=== PATIENT | male | born 1980 | race Caucasian/White ===

== ENCOUNTER 2024-03-12 18:08 | Inpatient (IN) | payer SELFPAY ==
--- NOTE | 2024-03-12 18:13 | PC.NURSE ---
arrived by stretcher from [place]
--- NOTE | 2024-03-12 19:18 | EXP.HP ---
History of Present Illness *Admission Date: 03/12/24 *Reason for visit:: Palpitation *History of present illness: This is a 43-year-old male with none other past medical history than hypertension, and obesity, presenting here as a transfer from [facility] for evaluation of palpitations and elevated troponin. Patient referred he was started on by was earlier today and he has been experiencing palpitations since then. He presented to the ER and he was fine on arrival to be hypertensive tachycardic EKG was obtained with normal sinus rhythm no ST elevation some T wave abnormality. Patient denies chest pain and shortness of breath. Troponin high-sensitivity was hide requesting transfer for cardiology evaluation. Admitted for further management and workup. [facility] Disclaimer: The information contained in this section may have been updated after the patient was seen, as this information can be updated by other users. Medical History (Updated 03/12/24 @ 23:52 by Pastor Simental APRN) Hypertension Family History Other Dementia Family history of acute heart failure Lung cancer Social History Smoking Status: Former smoker alcohol intake: former current occupational status: employed Travel in the last 8 weeks: None Review of Systems Review of Systems Review of systems:: pertinent systems reviewed and negative unless documented below Meds Home Medications and Allergies Home Medications ?Medication ?Instructions ?Recorded ?Confirmed ?Type bupropion HCl 300 mg 24 hr tablet, 300 mg PO DAILY 03/12/24 03/12/24 History extended release irbesartan 300 mg tablet 300 mg PO DAILY 03/12/24 03/12/24 History propranolol 40 mg tablet 40 mg PO DAILY 03/12/24 03/12/24 History New Prescriptions to Start Prescriptions: Allergies Allergy/AdvReac Type Severity Reaction Status Date / Time No Known Allergies Allergy Verified 03/12/24 19:06 Exam Data for Last 24 hours Vital signs and Labs for Last 24 Hours: O2 Del Method Room Air 03/12/24 19:07 Constitutional Constitutional: no acute distress *Routine HEENT Exam Head: Present normocephalic Eye: Present EOMI and PERRL ENT: Present mucous membranes moist *Routine Neck Exam Neck: Present supple; Absent lymphadenopathy *Routine Respiratory Exam Respiratory: Present CTA bilaterally *Routine Cardiovascular Exam Cardiovascular: Present RRR *Routine Abdominal Exam Abdominal: Present soft and normoactive bowel sounds; Absent tenderness *Routine Rectal Exam Rectal:: deferred *Routine Genitalia Exam Genitalia:: deferred *Routine Extremities Exam Extremities: Absent cyanosis, clubbing or edema *Routine Skin Exam Skin: Present warm; Absent rash *Routine Neurological Exam Neurological: Present alert and oriented X3 H&P: Result Imaging and Cardiology EKG: Status: image reviewed by me, Preliminary report and final report Chest x-ray: Status: image reviewed by me, Preliminary report and final report Assessment and Plan *Assessment and plan (1) NSTEMI (non-ST elevated myocardial infarction): Status: Acute Category: Medical Code(s): I21.4 - Non-ST elevation (NSTEMI) myocardial infarction (2) Hypertension: Status: Acute Qualifiers: Hypertension type: unspecified Qualified Code(s): I10 - Essential (primary) hypertension Category: Medical Code(s): I10 - Essential (primary) hypertension (3) Anxiety: Status: Acute Category: Medical Code(s): F41.9 - Anxiety disorder, unspecified (4) Obesity (BMI 30.0-34.9): Status: Acute Category: Medical Code(s): E66.9 - Obesity, unspecified Plan 43-year-old male with none other past medical history than hypertension, and obesity, presenting here as a transfer from [facility] for mindy
[2024-03-12 19:37] VITALS: BMI 33.0
[2024-03-12 20:00] VITALS: PULSE 80; O2SAT 94
[2024-03-12 20:33] LABS: Troponin I 0.07 ng/ml (0.00-0.034)
[2024-03-12 22:35] LABS: Troponin I 0.06 ng/ml (0.00-0.034)
--- NOTE | 2024-03-12 23:44 | ECG_ITS ---
APPROVED REPORT Exam: Resting ECG HR:84 bpm ECG Measurements Heart Rate 84 AXES SD 187 P 53 QRSd 83 QRS 22 QT 348 T 0 QTc 389 Conclusion SINUS RHYTHM NONSPECIFIC ST & T-WAVE ABNORMALITY BORDERLINE ECG UNCONFIRMED REPORT Electronically signed by : Thai Hudson MD 03/13/2024 08:53:02
[2024-03-13] VITALS (21 sets, daily range): BP systolic 127–161; BP diastolic 80–98; PULSE 70–91; RESP 16–19; TEMP 36.5–36.9; O2SAT 94–98; BMI 33.0
[2024-03-13 01:14] LABS: Troponin I 0.05 ng/ml (0.00-0.034)
--- NOTE | 2024-03-13 04:11 | PC.NURSE ---
Pt is alert and oriented x4 and currently tolerating RA well. Pt telemetry remains unchanged with a NSR. Pt denies chest pain and troponin levels have been trending down since admission (0.07, 0.06, 0.05). Pt has been NPO since 03/13 in preparation for cardiac consult and possible intervention. Pt voices no needs and there has been no acute changes thus far.
[2024-03-13 06:42] LABS: Basophils # 0.1 K/mm3 (0-0.2); Basophils % 0.7 % (0.1-2.0); Eosinophils # 0.2 K/mm3 (0.0-0.4); Eosinophils % 2.2 % (0.1-12.0); Hemoglobin 15.3 g/dL (14.1-18.0); Lymphocytes # 1.9 K/mm3 (0.7-4.5); Lymphocytes % 26.1 % (10-50); Mean Corpuscular HGB Conc 31.8 g/dL (31.8-35.4); Mean Corpuscular Hemoglobin 30.1 pg (27.0-31.2); Mean Corpuscular Volume 94.7 fl (80-94); Mean Platelet Volume 8.5 fl (7.4-10.4); Monocytes # 0.6 K/mm3 (0.1-1.0); Monocytes % 8.4 % (1.7-9.3); Neutrophils # 4.6 K/mm3 (1.8-7.8); Neutrophils % 62.6 % (37.0-80.0); Platelet Count 249 K/mm3 (142-424); Red Blood Count 5.07 M/mm3 (4.60-6.20); Red Cell Distribution Width 14.3 % (11.5-17.5); White Blood Count 7.4 K/mm3 (4.8-10.8)
[2024-03-13 06:45] LABS: Albumin Level 3.7 g/dl (3.5-5.0); Chloride 110 mmol/L (98-107); Potassium 4.2 mmoL/L (3.5-5.1); Sodium 136 mmol/L (136-145)
[2024-03-13 06:47] LABS: Alanine Aminotransferase 36 U/L (12-78); Alkaline Phosphatase 64 U/L (38-126); Anion Gap 7.2 mEq/L (5-15); Aspartate Amino Transferase 36 U/L (17-59); Bilirubin,Total 0.6 mg/dl (0.2-1.3); Blood Urea Nitrogen 11 mg/dl (9-20); Carbon Dioxide 23 mmol/L (22.0-30.0); Creatinine Clearance Estimated 144 mL/min (50-200); Estimated Glomerular Filt Rate 82 ml/min (>60); GFR (African American) 100 ML/MIN (>60)
[2024-03-13 06:48] LABS: Albumin/Globulin Ratio 1.5 (1.1-1.8); Calcium 8.2 mg/dl (8.4-10.2); Globulin 2.5 g/dL (1.3-3.2); Glucose 96 mg/dl (74-100); Magnesium 2.2 mg/dl (1.6-2.3); Total Protein,Serum 6.2 g/dl (6.3-8.2)
[2024-03-13 06:52] LABS: INR 0.94 (0.9-1.1); Prothrombin Time 10.6 seconds (10.1-12.5)
[2024-03-13 07:26] LABS: Chol/HDL Ratio 7.3 (1-3.5); Cholesterol 205 mg/dl (140-200); HDL Cholesterol 28 mg/dl (40-60); Triglycerides 225 mg/dl (30-150); VLDL Cholesterol 45 mg/dL (0-40)
[2024-03-13 07:37] LABS: Direct LDL Cholesterol 136.99 mg/dL (100-129)
--- NOTE | 2024-03-13 07:37 | HMH.PHAINT1 ---
Pharmacy Intervention Comments: HOME MEDICATION LIST VERIFIED USING LIST FROM OUTPATIENT PHARMACY AND PT INTERVIEW
--- NOTE | 2024-03-13 08:39 | CA_ITS ---
APPROVED REPORT EXAM: Comprehensive 2D, Doppler, and color-flow Echocardiogram Nurse Licensed Practical: Sabrina Michael RDCS Ht: 5 ft 10 in Wt: 230lbs BSA: 2.21 BP: 140/68 mmHg Indications: CP NSTEMI PALPITATIONS 2D Dimensions Left Atrium 3.70 cm M: 3.0 - 4.0 EF AP4 45.30 % LVOT 2.17 cm (M/F) 1.5-2.5 GL Strain -14.0 % M-Mode Dimensions RVDd 2.25 cm (0.9-2.6) LVDd 4.73 cm (3.5-5.7) Ao Diam 3.13 cm (2.0-3.7) LVDs 3.62 cm (3.5-5.7) IVSd 0.69 cm (0.6-1.1) PWd 0.91 cm (0.6-1.1) EF (Teich) 46.90% FS 23.50% EDV (Teich) 103.90 mL TAPSE 1.98 (<1.7) ESV (Teich) 55.20 mL LV Diastology E Decel Time 217 (160-240 msec) E/A Ratio 1.2 MED E' 7.1 (>= 7 cm/sec) E'/MED E' Ratio 8.27 (<= 14) LAT E' 10.6 (>= 10 cm/sec) E/LAT E' Ratio 5.54 (<= 14) Mitral Valve MV E Max Bryan. 59.0 (40-130 cm/s) MV A Velocity 50.0 (40-130 cm/s) E/A Ratio 1.18 MV Decel. Time 217 (160-240 ms) Left Ventricle The left ventricle is normal size. The left ventricular systolic function is normal. The left ventricular ejection fraction is within the normal range. There is increased LV wall thickness. There is normal LV segmental wall motion. The left ventricular diastolic function is normal. LVEF is 55%. Right Ventricle Right ventricle is mild to moderately dilated. Right ventricle is mildly hypokinetic. Atria The left atrium size is normal. The right atrium size is normal. There is no Doppler evidence of interatrial shunt. Aortic Valve The aortic valve is normal in structure. There is no aortic valvular stenosis. Trace aortic regurgitation. Mitral Valve The mitral valve is normal in structure. No evidence of mitral valve stenosis. Trace mitral valve regurgitation noted. Tricuspid Valve The tricuspid valve leaflets are thin and pliable. Trace tricuspid regurgitation. There is insufficient TR jet to estimate RVSP. Pulmonic Valve The pulmonary valve is normal in structure. Trace pulmonic regurgitation. Great Vessels The aortic root is normal in size. The ascending aorta is normal in size. IVC is normal in size and collapses >50% with inspiration. Pericardium There is no pericardial effusion. Other Information Study Quality: Fair Conclusion Normal LV systolic function. No regional wall motion abnormalities are noted. Right ventricle is mild to moderately dilated. There is mild reduction in RV function. No significant valvular stenosis or regurgitation. The chronicity of the RV dysfunction is indeterminate. Further evaluation of RV dysfunction is suggested. Electronically signed by : Danae Martinez MD 03/13/2024 20:01:03
--- NOTE | 2024-03-13 08:39 | XR_ITS ---
FINAL REPORT CLINICAL HISTORY: chest pain FINDINGS: SINGLE-VIEW CHEST The heart size is normal. The mediastinum is normal. The lungs are clear. There is no pneumothorax. IMPRESSION: No acute cardiopulmonary process. Reviewed, Interpreted and Dictated by Shoaib Shepard III, MD Transcribed by Lanie Mars Authenticated and [facility]
[2024-03-13 10:21] LABS: 25-OH Vitamin D, Total 21.9 ng/mL (30-100)
--- NOTE | 2024-03-13 10:55 | EXP.CARD.CON ---
History of Present Illness History of Present Illness Consult date: 03/13/24 Consult reason: chest pain Chief complaint: Chest pain and weakness History of present illness: 43-year-old white male without known cardiovascular disease but CV risk factors including treated high blood pressure, former smoker, family history of premature cardiovascular disease. 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 He states he felt his heart pounding through this and was weak. He was also stung by a wasp twice during the training. States in the past this is caused significant reaction including nausea vomiting and weakness. 4 hours after the training was over he still continued with a pounding heart rate greater than 120 according to his watch associated with pressure and tightness in his chest and a sense of anxiety and nausea. He presented to [facility] emergency room for evaluation. EKG showed sinus rhythm with nonspecific changes. His troponin was elevated so he was transferred to this facility for cardiac evaluation. He was admitted overnight on ACS meds. His troponins here have trended flat 0.05, 0.06, 0.07. His vitals are perfect this morning and he denies any further symptoms. Patient states his father began having MIs in his 30s and at the age of 56. Patient states this is the first time he is ever had the symptoms with exertion. [facility] Disclaimer: The information contained in this section may have been updated after the patient was seen, as this information can be updated by other users. Medical History Hypertension Family History Other Dementia Family history of acute heart failure Lung cancer Social History Smoking Status: Former smoker alcohol intake: former current occupational status: employed Travel in the last 8 weeks: None Review of Systems Constitutional Constitutional: Reports fatigue and Reports weakness Eyes Eyes: Denies loss of vision ENT Ears, Nose, Mouth, and Throat: Denies hearing loss and Denies vertigo *Cardiovascular Cardiovascular: Reports chest pain, Reports chest pain with activity, Reports dyspnea, Reports palpitations and Denies syncope *Respiratory Respiratory: Denies cough and Reports dyspnea *Gastrointestinal Gastrointestinal: Denies change in stool character, Reports nausea and Denies vomiting *Genitourinary Genitourinary: Denies difficulty urinating *Musculoskeletal Musculoskeletal: Denies muscle weakness Integumentary/Breasts Skin/Breast: Denies changing lesions *Neurologic Neurologic: Denies loss of vision, Denies syncope, Denies vertigo and Reports weakness Endocrine Endocrine: Reports fatigue and Reports palpitations Exam Data for Last 24 hours Vital signs and Labs for Last 24 Hours: Temp Pulse Resp BP Pulse Ox O2 Del Method 97.7 F 70 16 138/86 98 Room Air 03/13/24 07:56 03/13/24 08:00 03/13/24 07:56 03/13/24 07:56 03/13/24 07:56 03/13/24 10:51 Laboratory Results - last 24 hr 03/12/24 19:02: Troponin I 0.07 H 03/12/24 22:00: Troponin I 0.06 H 03/13/24 00:50: Troponin I 0.05 H 03/13/24 06:30: WBC 7.4, RBC 5.07, Hgb 15.3, Hct 48.0, MCV 94.7 H, MCH 30.1, MCHC 31.8, RDW 14.3, Plt Count 249, MPV 8.5, Neut % (Auto) 62.6, Lymph % (Auto) 26.1, Nash % (Auto) 8.4, Eos % (Auto) 2.2, Baso % (Auto) 0.7, Neut # (Auto) 4.6, Lymph # (Auto) 1.9, Nash # (Auto) 0.6, Eos # (Auto) 0.2, Baso # (Auto) 0.1, PT 10.6, INR 0.94, Sodium 136, Potassium 4.2, Chloride 110 H, Carbon Dioxide 23, Anion Gap 7.2, BUN 11, Creatinine 1.00, Estimated Creat Clear 144, Estimated GFR 82, Est GFR ( Amer) 100, Glucose 96, Calcium 8.2 L, Magnesium 2.2, Total Bilirubin 0.6, AST 36, AL
[2024-03-13 11:40] LABS: Hemoglobin A1C 5.7 % (4.0-6.0)
--- NOTE | 2024-03-13 12:09 | IR_ITS ---
APPROVED REPORT Patient Location: Inpatient Video Effects Editor: NOAH Chu RT (R) PROCEDURES Left heart catheterization Left ventriculogram Selective coronary angiogram Drug-eluting stent deployment to the mid LAD INDICATION Acute non-ST elevation myocardial infarction, Coronary artery disease Informed consent was obtained prior to the procedure. COMPLICATIONS None Estimated Blood Loss: Less than 10 mls TECHNIQUE One percent lidocaine used to anesthetize the right anterior aspect of the wrist. The right radial artery was accessed via the Seldinger technique. A 6 Portuguese sheath was placed in the right radial artery. 2.5 mg of Verapamil, 800 mcg of nitroglycerin, 1mg Lidocaine and 5000 U Heparin were given through the arterial sheath. The papa catheter was also used to perform left heart catheterization, left ventriculogram and selective coronary angiogram. At the end of the diagnostic angiogram therapeutic heparin was administered giving a therapeutic ACT and the guide catheter was placed in left main artery followed by Choice PT extra-support wire placed down the LAD. A 3.5 x 18 mm Cross Timbers frontier stent was deployed at 12 [place] in the mid LAD reducing the critical stenosis to 0%. NATHAN-3 flow was present before and after the procedure. Within the end of the procedure the apparatus was removed the sheath was removed good hemostasis was achieved using TR banding patient was transferred to the postop putting in stable condition ANGIOGRAPHIC RESULTS The left main artery Normal The left anterior descending artery Has proximal 10% luminal regularities followed by a mid vessel concentric hazy 80% stenosis followed by additional diffuse 20% mid vessel stenosis The circumflex artery Gives rise to a large ramus intermedius which has mid vessel tandem 30 to 40% stenoses. The circumflex artery itself is normal The right coronary artery Is codominant large caliber and has mid vessel 20% stenosis The GARCIA ventriculogram reveals Normal 65% The left ventricular end-diastolic pressure 20 mmHg IMPRESSION Acute non-ST elevation myocardial infarction while in the mid LAD with successful stenting reducing the critical disease to 0% with 1 drug-eluting stent Persistent moderate disease in a large ramus intermedius Normal ejection fraction Mildly elevated LVEDP PLAN 1. Effient and aspirin 2. LDL less than 55 to be achieved with high intensity statin 3. Avoidance of tobacco products 4. Risk factor modification 5. Better control of hypertension 6. Cardiac rehabilitation Electronically signed by : Kendell Ramon MD 03/13/2024 14:00:53
[2024-03-13 12:26] LABS: D-Dimer < 0.25 ug/mL (0.0-0.5)
--- NOTE | 2024-03-13 14:19 | SUR.PHASEII ---
Per verbal order by kristin Juarez/latisha mcghee and start effient 10mg daily, give loading dose of effient first. See MAR
[2024-03-13 14:28] LABS: CATHL Activated Clotting Time > 400 SEC (74-125)
--- OUTSIDE RECORDS SUMMARY | 2024-03-13 14:42 | XMS_ITS | Continuity of Care Document ---
Author Organization [facility] Phone Care Team Providers Care Physical Laboratory Assistant Name Role Phone YAMILE MIXON Admitting NO, FAMILY P Primary Care YAMILE MIXON Primary Attending YAMILE MIXON Unavailable ALLERGIES AND ADVERSE REACTIONS ALLERGIES AND ADVERSE REACTIONS Code System Allergy Substance Adverse Reaction Date Reaction (Severity) Comment Status Reported By Updated By No Known Allergies [id number] on March 12, 2024 9:45:07 PM UTC RESULTS Patient: VICE MICHELLE MONSALVE Date of : 1980 1 LABORATORY RESULTS ORDER 100: CBC AUTO W DIFF ( LOINC: [id number]) ORDER DATE: March 12, 2024 7:34:00 PM UTC Specimen Source: Whole Blood Specimen Type: Whole blood s ample PERFORMING LAB: [address] [id number] Result Comment: Final Result Date: March 12, 2024 8:00:00 PM UTC (TECH: MRB) LOINC TEST FLAG RESULT REFERENCE RANGE UPDA ANNA BY 6690-2 Leukocytes [#/volume] in Blood by Automated count N 11.3 10^3/uL 4.5 10^3/uL - 11.5 10^3/uL March 12, 2024 8:00:00 PM UTC (TECH: MRB) 789-8 Erythrocytes [#/volume] in Blood by Automated count N 5.28 10^6/uL 4.25 10^6/uL - 5.57 10^6/uL March 12, 2024 8:00:00 PM UTC (TECH: MRB) 718-7 Hemoglobin [Mass/volume] in Blood N 15.5 g/dL 13.5 g/dL - 17.2 g/dL
--- NOTE | 2024-03-13 16:34 | EXP.PN ---
Subjective *Date: 03/13/24 *Time: 16:34 Interval history: seen at bedside, no active chest pain, no SOB, sitting in chair Exam Data for Last 24 hours Vital signs and Labs for Last 24 Hours: Temp Pulse Resp BP Pulse Ox O2 Del Method 98.1 F 91 H 17 138/84 97 Room Air 03/13/24 14:50 03/13/24 15:27 03/13/24 15:27 03/13/24 15:27 03/13/24 15:27 03/13/24 15:27 Laboratory Results - last 24 hr 03/12/24 19:02: Troponin I 0.07 H 03/12/24 22:00: Troponin I 0.06 H 03/13/24 00:50: Troponin I 0.05 H 03/13/24 06:30: WBC 7.4, RBC 5.07, Hgb 15.3, Hct 48.0, MCV 94.7 H, MCH 30.1, MCHC 31.8, RDW 14.3, Plt Count 249, MPV 8.5, Neut % (Auto) 62.6, Lymph % (Auto) 26.1, Stanly % (Auto) 8.4, Eos % (Auto) 2.2, Baso % (Auto) 0.7, Neut # (Auto) 4.6, Lymph # (Auto) 1.9, Stanly # (Auto) 0.6, Eos # (Auto) 0.2, Baso # (Auto) 0.1, PT 10.6, INR 0.94, D-Dimer < 0.25, Sodium 136, Potassium 4.2, Chloride 110 H, Carbon Dioxide 23, Anion Gap 7.2, BUN 11, Creatinine 1.00, Estimated Creat Clear 144, Estimated GFR 82, Est GFR ( Amer) 100, Glucose 96, Hemoglobin A1c 5.7, Calcium 8.2 L, Magnesium 2.2, Total Bilirubin 0.6, AST 36, ALT 36, Alkaline Phosphatase 64, Total Protein 6.2 L, Albumin 3.7, Globulin 2.5, Albumin/Globulin Ratio 1.5, Triglycerides 225 H, Cholesterol 205 H, LDL Cholesterol Direct 136.99 H, VLDL Cholesterol 45 H, HDL Cholesterol 28 L, Cholesterol/HDL Ratio 7.3 H, 25-OH Vitamin D Total 21.9 L 03/13/24 13:39: Activated Clotting Time > 400 H* I & O for Last 24 hours: Intake & Output 03/10/24 03/11/24 03/12/24 03/13/24 23:59 23:59 23:59 23:59 Intake Total 240 / 240 Output Total 0 / 0 Balance 240 / 240 Weight 104.355 kg 104.553 kg Constitutional Constitutional: no acute distress *Routine HEENT Exam Head: Present normocephalic Eye: Present EOMI and PERRL ENT: Present mucous membranes moist *Routine Neck Exam Neck: Present supple; Absent lymphadenopathy *Routine Respiratory Exam Respiratory: Present CTA bilaterally *Routine Cardiovascular Exam Cardiovascular: Present RRR *Routine Abdominal Exam Abdominal: Present soft and normoactive bowel sounds; Absent tenderness *Routine Extremities Exam Extremities: Absent cyanosis, clubbing or edema *Routine Skin Exam Skin: Present warm; Absent rash *Routine Neurological Exam Neurological: Present alert and oriented X3 Assessment and Plan *Assessment and plan (1) NSTEMI (non-ST elevated myocardial infarction): Status: Acute Category: Medical Code(s): I21.4 - Non-ST elevation (NSTEMI) myocardial infarction (2) Hypertension: Status: Acute Qualifiers: Hypertension type: unspecified Qualified Code(s): I10 - Essential (primary) hypertension Category: Medical Code(s): I10 - Essential (primary) hypertension (3) Anxiety: Status: Acute Category: Medical Code(s): F41.9 - Anxiety disorder, unspecified (4) Obesity (BMI 30.0-34.9): Status: Acute Category: Medical Code(s): E66.9 - Obesity, unspecified Plan 43-year-old male with none other past medical history than hypertension, and obesity, presenting here as a transfer from [facility] for evaluation of palpitations and elevated troponin. Patient referred he was started on by was earlier today and he has been experiencing palpitations since then. Initial evaluation include prolapse there are grossly abnormal except for potassium 3.3. Was replaced at the ER checks x-ray negative EKG negative patient was given aspirin and Brilinta as well as metoprolol IV push 5 mg. Transfer was requested. I agree for admission. Plan as follow: -STEMI: presented with troponemia: Hypertension and tachycardia to rule out ACS: s/p Cardiac cath, stenting performed cardiac cath report MPRESSION Acute non-ST elevation myocardial infarction while in the mid LAD with successful stenting reducing the critical disease to 0% with 1 drug-elutin
--- NOTE | 2024-03-13 17:36 | PC.NURSE ---
Pt Alert and oriented x4. Pt c/o being SOB today before heart cath but had no chest pain. Pt went down for heart cath and got 1 stent to proximal LAD. Pt would arouse and ask/answer questions when he came back to the floor but would fall asleep in between questions. VSS. pulses 1+ throughout. Pt now eating dinner and is more awake. Pt ambulating independently to and from bathroom. Pt has no complaints at this time, will continue to monitor.
[2024-03-14] VITALS: PULSE 69
[2024-03-14 04:00] VITALS: BP 140/83; PULSE 83; RESP 18; TEMP 36.5; O2SAT 100
[2024-03-14 04:15] VITALS: PULSE 66
--- NOTE | 2024-03-14 04:57 | PC.NURSE ---
Alert and oriented. No complaints throughout the night. Independent in the room. Lung sounds clear, no complaints of SOA. Right radial cath site, dressing CDI. Call light in reach.
[2024-03-14 07:03] LABS: Basophils # 0.1 K/mm3 (0-0.2); Basophils % 0.7 % (0.1-2.0); Eosinophils # 0.2 K/mm3 (0.0-0.4); Eosinophils % 2.7 % (0.1-12.0); Hematocrit 50.5 % (42.0-52.0); Hemoglobin 15.6 g/dL (14.1-18.0); Lymphocytes # 1.6 K/mm3 (0.7-4.5); Lymphocytes % 24.7 % (10-50); Mean Corpuscular Hemoglobin 30.1 pg (27.0-31.2); Mean Corpuscular Volume 97.2 fl (80-94); Mean Platelet Volume 8.6 fl (7.4-10.4); Monocytes # 0.6 K/mm3 (0.1-1.0); Monocytes % 8.4 % (1.7-9.3); Neutrophils # 4.2 K/mm3 (1.8-7.8); Neutrophils % 63.4 % (37.0-80.0); Platelet Count 240 K/mm3 (142-424); Red Blood Count 5.19 M/mm3 (4.60-6.20); Red Cell Distribution Width 14.2 % (11.5-17.5); White Blood Count 6.6 K/mm3 (4.8-10.8)
[2024-03-14 07:18] LABS: Chloride 108 mmol/L (98-107); Sodium 136 mmol/L (136-145)
[2024-03-14 07:19] LABS: Potassium 4.7 mmoL/L (3.5-5.1)
[2024-03-14 07:22] LABS: Anion Gap 6.7 mEq/L (5-15); Blood Urea Nitrogen 10 mg/dl (9-20); Calcium 8.6 mg/dl (8.4-10.2); Carbon Dioxide 26 mmol/L (22.0-30.0); Creatinine Clearance Estimated 144 mL/min (50-200); Estimated Glomerular Filt Rate 82 ml/min (>60); GFR (African American) 100 ML/MIN (>60); Glucose 109 mg/dl (74-100)
[2024-03-14 08:00] VITALS: BP 156/109; PULSE 65; PULSE 82; RESP 16; TEMP 36.5; O2SAT 98
--- NOTE | 2024-03-14 09:36 | EXP.CARD.PN ---
Subjective Subjective Date: 03/14/24 Time: 09:37 Interval history: Successful stenting to LAD yesterday. No events overnight. Patient's symptoms are resolved this morning and his labs and vitals are stable. Exam Data for Last 24 hours Vital signs and Labs for Last 24 Hours: Temp Pulse Resp BP Pulse Ox O2 Del Method 97.7 F 82 16 156/109 H 98 Room Air 03/14/24 08:00 03/14/24 08:00 03/14/24 08:00 03/14/24 08:00 03/14/24 08:00 03/14/24 09:00 Laboratory Results - last 24 hr 03/13/24 06:30: D-Dimer < 0.25, Hemoglobin A1c 5.7, 25-OH Vitamin D Total 21.9 L 03/13/24 13:39: Activated Clotting Time > 400 H* 03/14/24 06:39: WBC 6.6, RBC 5.19, Hgb 15.6, Hct 50.5, MCV 97.2 H, MCH 30.1, MCHC 31.0 L, RDW 14.2, Plt Count 240, MPV 8.6, Neut % (Auto) 63.4, Lymph % (Auto) 24.7, Nye % (Auto) 8.4, Eos % (Auto) 2.7, Baso % (Auto) 0.7, Neut # (Auto) 4.2, Lymph # (Auto) 1.6, Nye # (Auto) 0.6, Eos # (Auto) 0.2, Baso # (Auto) 0.1, Sodium 136, Potassium 4.7, Chloride 108 H, Carbon Dioxide 26, Anion Gap 6.7, BUN 10, Creatinine 1.00, Estimated Creat Clear 144, Estimated GFR 82, Est GFR ( Amer) 100, Glucose 109 H, Calcium 8.6 I & O for Last 24 hours: Intake & Output 03/11/24 03/12/24 03/13/24 03/14/24 23:59 23:59 23:59 23:59 Intake Total 690 / 990 670 / 670 Output Total 0 / 0 0 / 0 Balance 690 / 990 670 / 670 Weight 230 lb 1 oz 230 lb 8 oz Constitutional Constitutional: no acute distress and cooperative *Routine HEENT Exam Eye: Present PERRL *Routine Respiratory Exam Respiratory: Present CTA bilaterally; Absent accessory muscle use, wheezes or crackles *Routine Cardiovascular Exam Cardiovascular: Present RRR, Normal S1 and Normal S2; Absent murmur, gallop or rubs *Routine Abdominal Exam Abdominal: Present soft; Absent tenderness *Routine Extremities Exam Extremities: Present pulses intact; Absent cyanosis or edema *Routine Skin Exam Skin: Present intact; Absent erythema or wounds *Routine Neurological Exam Neurological: Present alert and oriented X3 Routine Psychiatric Exam Psychiatric: Present cooperative Progress Note: A&P Assessment and plan (1) NSTEMI (non-ST elevated myocardial infarction): Status: Acute Assessment and plan: ANGIOGRAPHIC RESULTS The left main artery Normal The left anterior descending artery Has proximal 10% luminal regularities followed by a mid vessel concentric hazy 80% stenosis followed by additional diffuse 20% mid vessel stenosis The circumflex artery Gives rise to a large ramus intermedius which has mid vessel tandem 30 to 40% stenoses. The circumflex artery itself is normal The right coronary artery Is codominant large caliber and has mid vessel 20% stenosis The GARCIA ventriculogram reveals Normal 65% The left ventricular end-diastolic pressure 20 mmHg IMPRESSION Acute non-ST elevation myocardial infarction while in the mid LAD with successful stenting reducing the critical disease to 0% with 1 drug-eluting stent Persistent moderate disease in a large ramus intermedius Normal ejection fraction Mildly elevated LVEDP PLAN 1. Effient and aspirin 2. LDL less than 55 to be achieved with high intensity statin 3. Avoidance of tobacco products 4. Risk factor modification 5. Better control of hypertension 6. Cardiac rehabilitation (2) Hypertension: Status: Acute (3) Anxiety: Status: Acute (4) Obesity (BMI 30.0-34.9): Status: Acute Assessment and Plan Assessment and Plan for All Diagnoses:: NSTEMI 03/13 -new dx this admission -Successful LAD stent 03/13 -Recommend cardiac rehab at discharge -Continue home dose irbesartan and propranolol -Add aspirin, Effient, high-dose statin -No heavy exertion for 2 weeks -Office follow-up in 2 weeks, he lives in [place] but we will be glad to see him until he can get established there if that is his preference. RV Dilation - noted on ECHO here in setting of tachycardia and SOA -D-dimer
[2024-03-14 12:00] VITALS: PULSE 85
--- NOTE | 2024-03-14 12:21 | EXP.DC.SUM ---
General Admission date:: 03/12/24 Discharge date: 03/14/24 HPI HPI HPI: This is a 43-year-old male with none other past medical history than hypertension, and obesity, presenting here as a transfer from [facility] for evaluation of palpitations and elevated troponin. Patient referred he was started on by was earlier today and he has been experiencing palpitations since then. He presented to the ER and he was fine on arrival to be hypertensive tachycardic EKG was obtained with normal sinus rhythm no ST elevation some T wave abnormality. Patient denies chest pain and shortness of breath. Troponin high-sensitivity was hide requesting transfer for cardiology evaluation. Admitted for further management and workup. Hospital Course Hospital Course Hospital Course: 3-year-old male with none other past medical history than hypertension, and obesity, presenting here as a transfer from [facility] for evaluation of palpitations and elevated troponin. Patient was treated for NSTEMI and had cardiac cath - patient did recieve stent in LAD and was discharged on Aspirin 81 mg 1 p.o. daily Effient 10 mg 1 p.o. daily Irbesartan 300 mg 1 p.o. daily Propranolol 40 mg 1 p.o. daily Atorvastatin 80 mg 1 p.o. daily Patient medications sent to his pharmacy and patient verbalized understanding of f/u appointments, patient to be discharged in stable condition On the date of discharge, the patient reported feeling stable. The patient was found not to be in any acute distress, and no new abnormalities on physical examination. Further, the patient expressed appropriate understanding of, and agreement with, the discharge recommendations, medications, and plan. Time spent 37 mins Exam Data for Last 24 hours Vital signs and Labs for Last 24 Hours: Temp Pulse Resp BP Pulse Ox O2 Del Method 97.7 F 82 16 156/109 H 98 Room Air 03/14/24 08:00 03/14/24 08:00 03/14/24 08:00 03/14/24 08:00 03/14/24 08:00 03/14/24 11:00 Laboratory Results - last 24 hr 03/13/24 06:30: D-Dimer < 0.25 03/13/24 13:39: Activated Clotting Time > 400 H* 03/14/24 06:39: WBC 6.6, RBC 5.19, Hgb 15.6, Hct 50.5, MCV 97.2 H, MCH 30.1, MCHC 31.0 L, RDW 14.2, Plt Count 240, MPV 8.6, Neut % (Auto) 63.4, Lymph % (Auto) 24.7, [place] % (Auto) 8.4, Eos % (Auto) 2.7, Baso % (Auto) 0.7, Neut # (Auto) 4.2, Lymph # (Auto) 1.6, [place] # (Auto) 0.6, Eos # (Auto) 0.2, Baso # (Auto) 0.1, Sodium 136, Potassium 4.7, Chloride 108 H, Carbon Dioxide 26, Anion Gap 6.7, BUN 10, Creatinine 1.00, Estimated Creat Clear 144, Estimated GFR 82, Est GFR ( Amer) 100, Glucose 109 H, Calcium 8.6 I & O for Last 24 hours: Intake & Output 03/11/24 03/12/24 03/13/24 03/14/24 23:59 23:59 23:59 23:59 Intake Total 690 / 990 670 / 670 Output Total 0 / 0 0 / 0 Balance 690 / 990 670 / 670 Weight 104.355 kg 104.553 kg Constitutional Constitutional: no acute distress *Routine HEENT Exam Head: Present normocephalic Eye: Present EOMI and PERRL ENT: Present mucous membranes moist *Routine Neck Exam Neck: Present supple; Absent lymphadenopathy *Routine Respiratory Exam Respiratory: Present CTA bilaterally *Routine Cardiovascular Exam Cardiovascular: Present RRR *Routine Abdominal Exam Abdominal: Present soft and normoactive bowel sounds; Absent tenderness *Routine Extremities Exam Extremities: Absent cyanosis, clubbing or edema *Routine Skin Exam Skin: Present warm; Absent rash *Routine Neurological Exam Neurological: Present alert and oriented X3 Results Data Completed and Pending Labs on day of discharge: Labs from last 24 hours 03/14/24 03/13/24 03/13/24 06:39 13:39 06:30 WBC 6.6 RBC 5.19 Hgb 15.6 Hct 50.5 MCV 97.2 H MCH 30.1 MCHC 31.0 L RDW 14.2 Plt Count 240 MPV 8.6 Neut % (Auto) 63.4 Lymph % (Auto) 24.7 [place] % (Auto) 8.4 Eos % (Auto) 2.7 Baso % (Auto) 0.7 Neut # (Auto) 4.2 L
--- NOTE | 2024-03-17 14:46 | CARE MANAGER ---
Called and spoke with patient regarding recent discharge. Patient stated that he is doing well, has started all new medication and was aware of scheduled f/u appts. No concerns voiced at time of call.
== END 2024-03-14 12:40 | disposition home or self-care (01) | DRG 322 ==
PROVIDERS: Internal Medicine; Nurse Practitioner Family; Admitting Provider Internal Medicine Adolescent Medicine; Visit Provider Internal Medicine Adolescent Medicine
PROC: 027034Z Dilation of Coronary Artery, One Artery with Drug-eluting Intraluminal Device, Percutaneous Approach (ICD-10-PCS; principal; 2024-03-13 12:35)
DX: I21.4 Non-ST elevation (NSTEMI) myocardial infarction (principal); E66.9 Obesity, unspecified; F41.9 Anxiety disorder, unspecified; I10 Essential (primary) hypertension; Z79.899 Other long term (current) drug therapy; Z68.33 Body mass index [BMI] 33.0-33.9, adult; Z87.891 Personal history of nicotine dependence; Z82.49 Family history of ischemic heart disease and other diseases of the circulatory system; W57.XXXA Bitten or stung by nonvenomous insect and other nonvenomous arthropods, initial encounter; T14.8XXA Other injury of unspecified body region, initial encounter
CPT/HCPCS: 36415; 71045; 80048; 80053; 80061; 82306; 83036; 83735; 84484; 85025; 85347; 85378; 85610; 92928; 93005; 93306; 93458; 99152; C1725; C1760; C1769; C1874; C9600; J1200; J1644; J1650; J2250; J3010; Q9967

== ENCOUNTER 2024-06-24 09:47 | Outpatient (CLI) | payer OTHER, SELFPAY ==
[2024-06-24 10:10] LABS: Basophils # 0.1 K/mm3 (0-0.2); Basophils % 1.1 % (0.1-2.0); Eosinophils # 0.2 K/mm3 (0.0-0.4); Eosinophils % 2.5 % (0.1-12.0); Hematocrit 45.4 % (42.0-52.0); Hemoglobin 15.4 g/dL (14.1-18.0); Lymphocytes # 2.5 K/mm3 (0.7-4.5); Lymphocytes % 34.3 % (10-50); Mean Corpuscular HGB Conc 33.9 g/dL (31.8-35.4); Mean Corpuscular Volume 91.3 fl (80-94); Mean Platelet Volume 8.3 fl (7.4-10.4); Monocytes # 0.6 K/mm3 (0.1-1.0); Monocytes % 8.1 % (1.7-9.3); Neutrophils # 3.9 K/mm3 (1.8-7.8); Platelet Count 243 K/mm3 (142-424); Red Blood Count 4.97 M/mm3 (4.60-6.20); Red Cell Distribution Width 15.3 % (11.5-17.5); White Blood Count 7.3 K/mm3 (4.8-10.8)
[2024-06-24 10:37] LABS: Alanine Aminotransferase 57 U/L (12-78); Albumin Level 4.6 g/dl (3.5-5.0); Alkaline Phosphatase 60 U/L (38-126); Anion Gap 12.1 mEq/L (5-15); Aspartate Amino Transferase 33 U/L (17-59); Bilirubin,Direct 0.3 mg/dl (0.0-0.4); Bilirubin,Indirect 0.4 mg/dL (0.0-0.9); Bilirubin,Total 0.7 mg/dl (0.2-1.3); Bilirubin,Unconjugated 0.4 mg/dL (0.0-1.1); Blood Urea Nitrogen 16 mg/dl (9-20); Calcium 9.2 mg/dl (8.4-10.2); Carbon Dioxide 26 mmol/L (22.0-30.0); Chloride 104 mmol/L (98-107); Chol/HDL Ratio 5.7 (1-3.5); Cholesterol 247 mg/dl (140-200); Estimated Glomerular Filt Rate 124 ml/min (>60); GFR (African American) 150 ML/MIN (>60); Glucose 102 mg/dl (74-100); HDL Cholesterol 43 mg/dl (40-60); Potassium 4.1 mmoL/L (3.5-5.1); Sodium 138 mmol/L (136-145); Triglycerides 182 mg/dl (30-150); VLDL Cholesterol 36 mg/dL (0-40)
[2024-06-24 10:49] LABS: Direct LDL Cholesterol 166.19 mg/dL (100-129)
[2024-06-24 10:52] LABS: Free T4 (Free Thyroxine) 0.85 ng/dl (0.78-2.19)
[2024-06-24 11:06] LABS: Thyroid Stimulating Hormone 2.44 uIU/mL (0.465-4.68)
== END 2024-06-24 23:59 | disposition home or self-care (01) ==
PROVIDERS: PCP Nurse Practitioner Family; Visit Provider Internal Medicine
DX: R00.2 Palpitations (principal); I10 Essential (primary) hypertension; I25.10 Atherosclerotic heart disease of native coronary artery without angina pectoris
CPT/HCPCS: 36415; 80048; 80061; 80076; 84439; 84443; 85025; 93270